=== PATIENT | female | born 1985 | race Caucasian/White ===

== ENCOUNTER 2017-05-30 13:57 | Emergency (ER) | payer BC ==
[~2017-05-30 13:57] MED LIST: PREN0.01 PO
--- NOTE | 2017-05-30 15:34 | PD ---
HPI Chief Complaint Vaginal discharge possible rupture membranes Date Seen: May 30, 2017 Time Seen: 15:30 Travel History International Travel<30 Days: No Contact w/Intl Traveler<30Days: No Known Affected Area: No History of Present Illness HPI 31-year-old who is at 39 weeks and 3 days complains of possible rupture membranes. Patient was voiding and after voiding stood up and noticed a little bit of fluid coming out the job down her legs. It was clear and odorless. Patient's been having uncomplicated and is at 2 prior vaginal deliveries and is group B strep negative Para: 2 : 3 History Past Medical History Medical History: Denies Significant Hx Obstetric History Obstetric History 2 Past Surgical History Narrative Surgical Breast augmentation Family History Family History: Negative Social History Alcohol Use: No Tobacco Use: No Substance Abuse: No Allergies-Medications (Allergen,Severity, Reaction): Coded Allergies: No Known Allergies (Verified , 06/17/08) Home Meds Reported Medications Multivit/Min/Fol Ac/Iron/Pren ( Vit ( Plus)) Tab1 Tab PO DAILY #30 02/21/11 Review of Systems Except as stated in HPI: all other systems reviewed are Neg Physical Exam Narrative GENERAL: Well-nourished, well-developed patient. SKIN: Warm and dry. HEAD: Normocephalic and atraumatic. EYES: No scleral icterus. No injection or drainage. ENT: No nasal drainage noted. Mucous membranes pink. Airway patent. NECK: Supple, trachea midline. No JVD. CARDIOVASCULAR: Regular rate and rhythm without murmurs, gallops, or rubs. RESPIRATORY: Breath sounds equal bilaterally. No accessory muscle use. ABDOMEN/GI: Abdomen soft, non-tender, bowel sounds present, no rebound, no guarding Gravid to [-38] weeks size Fundal Height: [-] GENITOURINARY: External Genitalia: intact and normal in appearance BUS glands: [Normal-] Cervix: [-Mid position] Dilatation: [-3] Effacement: [80-] Station: [-2-] Presentation: [-Vertex] Membranes: [intact ] Uterine Contractions: [Absent) Category: [1-] Baseline: [140-] Reactive: [-Moderate] Variability: [-Moderate] Decels: [Absent-] EXTREMITIES: No cyanosis or edema. BACK: Nontender without obvious deformity. No CVA tenderness. NEUROLOGICAL: Awake and alert. Motor and sensory grossly within normal limits. Five out of 5 muscle strength in all muscle groups. Normal speech. Data Data Vital Signs Reviewed: Yes [facility] Medical Record Reviewed: Yes Plan 31-year-old at 39 weeks 3 days with a negative amnisure Patient is not in labor and cervix is unchanged from her appointment last week Patient is GBS negative Hasn't appointment for follow-up OB exam on Thursday Diagnosis Diagnosis: Primary Impression: 39 weeks gestation of Additional Impression: Intact amniotic membranes during in third trimester Disposition: 01 DISCHARGE HOME Carmella Mcgraw MD May 30, 2017 15:34
== END 2017-05-30 15:56 | disposition home or self-care (01) ==
LOC: HOBED 13:57
DX: Z03.79 Encounter for other suspected maternal and fetal conditions ruled out (principal)
CPT/HCPCS: 84112; 99284

== ENCOUNTER 2017-05-31 19:43 | Inpatient (IN) | payer BC ==
[2017-05-31] VITALS (14 sets, daily range): BP systolic 98–121; BP diastolic 61–72; PULSE 63–77; RESP 18; TEMP 98.2
[~2017-05-31] VITALS: Ht 170.2 cm; Wt 74.8 kg
[2017-05-31] MEDS ORDERED: LACTATED RINGER'S 1000 ML INJ 1,000 ML IV SCH ×2 (20:19)
[2017-05-31] MEDS ORDERED: LACTATED RINGER'S 1000 ML INJ 1,000 ML IV PRN ×2 (20:19)
[2017-05-31] MEDS ORDERED: CITRIC ACID-SODIUM CITRATE LIQ 30 ML UDC PO SCH (20:30)
[2017-05-31] MEDS ORDERED: ONDANSETRON HCL 4 MG/2 ML VIAL IV PRN (20:30)
[2017-05-31] MEDS ORDERED: LIDOCAINE HCL 1% 50 ML VIAL I-DERMAL PRN (20:30)
[2017-05-31] MEDS ORDERED: OXYTOCIN 30 UNITS-500ML PREMIX 500 ML IV SCH (20:30)
[2017-05-31] MEDS ORDERED: OXYTOCIN 30 UNITS-500ML PREMIX 500 ML IV ONE (20:30)
[2017-05-31] MEDS ORDERED: LIDOCAINE HCL 1% 50 ML VIAL INFIL PRN (20:30)
[2017-05-31] MEDS ORDERED: MINERAL OIL 10 ML VIAL TOPICAL PRN (20:30)
[2017-05-31] MEDS ORDERED: SODIUM CHLORID 0.9% 500 ML INJ 500 ML IV PRN ×2 (20:30)
--- NOTE | 2017-05-31 20:36 | PD ---
HPI Chief Complaint Leaking fluid Date Seen: May 31, 2017 Time Seen: 20:20 Travel History International Travel<30 Days: No Contact w/Intl Traveler<30Days: No Known Affected Area: No History of Present Illness HPI 31-year-old 3 para 2 at 40 weeks gestation who began having fluid leakage about 6 PM. She is grossly ruptured and 3 cm dilated. She is having minimal contraction activity. Para: 2 : 3 History Past Medical History Narrative Medical Hypothyroid currently on levothyroxine Obstetric History Obstetric History 2 prior term vaginal deliveries Past Surgical History Narrative Surgical Breast augmentation Family History Family History: Negative Social History Alcohol Use: No Tobacco Use: No Substance Abuse: No Allergies-Medications (Allergen,Severity, Reaction): Coded Allergies: No Known Allergies (Verified , 06/17/08) Home Meds Reported Medications Multivit/Min/Fol Ac/Iron/Pren ( Vit ( Plus)) Tab1 Tab PO DAILY #30 02/21/11 Review of Systems Except as stated in HPI: all other systems reviewed are Neg Physical Exam Narrative GENERAL: Well-nourished, well-developed patient. SKIN: Warm and dry. HEAD: Normocephalic and atraumatic. EYES: No scleral icterus. No injection or drainage. ENT: No nasal drainage noted. Mucous membranes pink. Airway patent. NECK: Supple, trachea midline. No JVD. CARDIOVASCULAR: Regular rate and rhythm without murmurs, gallops, or rubs. RESPIRATORY: Breath sounds equal bilaterally. No accessory muscle use. ABDOMEN/GI: Abdomen soft, non-tender, bowel sounds present, no rebound, no guarding Gravid to [-] weeks size Fundal Height: [-] GENITOURINARY: External Genitalia: intact and normal in appearance BUS glands: [-] Cervix: [-] Dilatation: [3-] Effacement: [-70] Station: [--2] Presentation: [Vertex-] Membranes: [ ruptured] Uterine Contractions: [-Irregular] FHT's: Category: [-1] Baseline: [-] Reactive: [-] Variability: [-] Decels: [-] EXTREMITIES: No cyanosis or edema. BACK: Nontender without obvious deformity. No CVA tenderness. NEUROLOGICAL: Awake and alert. Motor and sensory grossly within normal limits. Five out of 5 muscle strength in all muscle groups. Normal speech. Data Data Vital Signs Reviewed: Yes Orders Ob (2e) Additional Admit Info (05/31/17 20:19) Admit To Inpatient (05/31/17 ) Code Status (05/31/17 20:19) Vital Signs (Adult) .Per protocol (05/31/17 20:19) Heart (05/31/17 20:19) Amnioinfusion (05/31/17 20:19) Urinary Catheter Management .ONCE (05/31/17 20:19) Diet Liquid (06/01/17 Breakfast) Lactated Ringer's 1000 Ml Inj (Lr 1000 M (05/31/17 20:19) Lactated Ringer's 1000 Ml Inj (Lr 1000 M (05/31/17 20:19) Sodium Chlorid 0.9% 500 Ml Inj (Ns 500 M (05/31/17 20:30) Sodium Chlor 0.9% 1000 Ml Inj (Ns 1000 M (05/31/17 20:39) Lidocaine 1% Inj (50 Ml) (Xylocaine 1% I (05/31/17 20:30) Citric Acid-Sodium Citrate Liq (Bicitra (05/31/17 20:30) Ondansetron Inj (Zofran Inj) (05/31/17 20:30) Fentanyl Inj (Fentanyl Inj) (05/31/17 20:30) Fentanyl Inj (Fentanyl Inj) (05/31/17 20:30) Complete Blood Count With Diff (05/31/17 20:19) Hold Clot (05/31/17 20:19) Abo/Rh Blood Type (05/31/17 20:19) Resp Oxygen Non Rebreathe Mask (05/31/17 ) ^ Epidural / Intrathecal Infus (05/31/17 20:19) Oxytocin 30 Units-500ml Premix (Pitocin (05/31/17 20:30) Lidocaine 1% Inj (50 Ml) (Xylocaine 1% I (05/31/17 20:30) Light Mineral Oil (Muri-Lube Oil) (05/31/17 20:30) Inpatient Certification (05/31/17 ) Admit To Inpatient (05/31/17 ) Vital Signs (Adult) .Per protocol (05/31/17 20:19) Heart (05/31/17 20:19) Amnioinfusion (05/31/17 20:19) Urinary Catheter Management .ONCE (05/31/17 20:19) Lactated Ringer's 1000 Ml Inj (Lr 1000 M (05/31/17 20:19) Lactated Ringer's 1000 Ml Inj (Lr 1000 M (05/31/17 20:19) Sodium Chlorid 0.9% 500 Ml Inj (Ns 500 M (05/31/17 20:30) Sodium Chlor 0.9% 1000 Ml Inj (Ns 1000 M (05/31/17 20:39) Inpatient Certification (05/31/17 ) ^ Non Stress Test (05/31/17 20:29) Response To Medication .Post New Med Administration, Reaction (05/31/17 20:29) ^ Discontinue Medication (05/31/17 20:29) Oxytocin 30 Units-500ml Premix (Pitocin (05/31/17 20:30) MDM Medical Record Reviewed: Yes Narrative Course / MDM Assessment: Multipara at 40 weeks gestation with ruptured membranes and minimal uterine activity Plan: Admit for labor management including Pitocin augmentation. Dr. Delarosa was informed of the patient's arrival. Eric Robledo MD May 31, 2017 20:36
[2017-05-31] MEDS ORDERED: SODIUM CHLOR 0.9% 1000 ML INJ 1,000 ML IV PRN ×2 (20:39)
[2017-05-31 20:51] LABS: AUTOMATED NEUTROPHIL # 4.9 TH/MM3 (1.8-7.7); BASOPHIL # 0.1 TH/MM3 (0-0.2); BASOPHIL % 0.9 % (0.0-2.0); EOSINOPHIL # 0.1 TH/MM3 (0-0.4); EOSINOPHIL % 1.9 % (0.0-4.0); HEMO FLAGS DIFF FINAL; LYMPH % 21.9 % (9.0-44.0); LYMPHOCYTE # 1.6 TH/MM3 (1.0-4.8); MEAN CELL VOLUME 86.6 FL (80.0-100.0); MEAN CORPUSCULAR HEMOGLOBIN 28.5 PG (27.0-34.0); MEAN CORPUSCULAR HGB CONC 32.9 % (32.0-36.0); MONO % 7.7 % (0.0-8.0); NEUT % 67.6 % (16.0-70.0); PLATELET COUNT 223 TH/MM3 (150-450); RED BLOOD COUNT 3.58 MIL/MM3 (4.00-5.30); RED CELL DISTRIBUTION WIDTH 14.3 % (11.6-17.2); WHITE BLOOD COUNT 7.2 TH/MM3 (4.0-11.0)
--- NOTE | 2017-05-31 20:52 | HHI.HP ---
History & Physical H&P HPI HPI Chief Complaint Leaking fluid Date Seen: May 31, 2017 Time Seen: 20:20 Travel History International Travel<30 Days: No Contact w/Intl Traveler<30Days: No Known Affected Area: No History of Present Illness HPI 31-year-old 3 para 2 at 40 weeks gestation who began having fluid leakage about 6 PM. She is grossly ruptured and 3 cm dilated. She is having minimal contraction activity. Para: 2 : 3 History (Limited) History Past Medical History Narrative Medical Hypothyroid currently on levothyroxine Obstetric History Obstetric History 2 prior term vaginal deliveries Past Surgical History Narrative Surgical Breast augmentation Family History Family History: Negative Social History Alcohol Use: No Tobacco Use: No Substance Abuse: No Allergies-Medications Allergies-Medications (Allergen,Severity, Reaction): Coded Allergies: No Known Allergies (Verified , 06/17/08) Home Meds Reported Medications Multivit/Min/Fol Ac/Iron/Pren ( Vit ( Plus)) Tab1 Tab PO DAILY #30 02/21/11 ROS Review of Systems Except as stated in HPI: all other systems reviewed are Neg Physical Exam Physical Exam Narrative GENERAL: Well-nourished, well-developed patient. SKIN: Warm and dry. HEAD: Normocephalic and atraumatic. EYES: No scleral icterus. No injection or drainage. ENT: No nasal drainage noted. Mucous membranes pink. Airway patent. NECK: Supple, trachea midline. No JVD. CARDIOVASCULAR: Regular rate and rhythm without murmurs, gallops, or rubs. RESPIRATORY: Breath sounds equal bilaterally. No accessory muscle use. ABDOMEN/GI: Abdomen soft, non-tender, bowel sounds present, no rebound, no guarding Gravid to [-] weeks size Fundal Height: [-] GENITOURINARY: External Genitalia: intact and normal in appearance BUS glands: [-] Cervix: [-] Dilatation: [3-] Effacement: [-70] Station: [--2] Presentation: [Vertex-] Membranes: [ ruptured] Uterine Contractions: [-Irregular] FHT's: Category: [-1] Baseline: [-] Reactive: [-] Variability: [-] Decels: [-] EXTREMITIES: No cyanosis or edema. BACK: Nontender without obvious deformity. No CVA tenderness. NEUROLOGICAL: Awake and alert. Motor and sensory grossly within normal limits. Five out of 5 muscle strength in all muscle groups. Normal speech. Data Data Data Vital Signs Reviewed: Yes Orders Ob (2e) Additional Admit Info (05/31/17 20:19) Admit To Inpatient (05/31/17 ) Code Status (05/31/17 20:19) Vital Signs (Adult) .Per protocol (05/31/17 20:19) Heart (05/31/17 20:19) Amnioinfusion (05/31/17 20:19) Urinary Catheter Management .ONCE (05/31/17 20:19) Diet Liquid (06/01/17 Breakfast) Lactated Ringer's 1000 Ml Inj (Lr 1000 M (05/31/17 20:19) Lactated Ringer's 1000 Ml Inj (Lr 1000 M (05/31/17 20:19) Sodium Chlorid 0.9% 500 Ml Inj (Ns 500 M (05/31/17 20:30) Sodium Chlor 0.9% 1000 Ml Inj (Ns 1000 M (05/31/17 20:39) Lidocaine 1% Inj (50 Ml) (Xylocaine 1% I (05/31/17 20:30) Citric Acid-Sodium Citrate Liq (Bicitra (05/31/17 20:30) Ondansetron Inj (Zofran Inj) (05/31/17 20:30) Fentanyl Inj (Fentanyl Inj) (05/31/17 20:30) Fentanyl Inj (Fentanyl Inj) (05/31/17 20:30) Complete Blood Count With Diff (05/31/17 20:19) Hold Clot (05/31/17 20:19) Abo/Rh Blood Type (05/31/17 20:19) Resp Oxygen Non Rebreathe Mask (05/31/17 ) ^ Epidural / Intrathecal Infus (05/31/17 20:19) Oxytocin 30 Units-500ml Premix (Pitocin (05/31/17 20:30) Lidocaine 1% Inj (50 Ml) (Xylocaine 1% I (05/31/17 20:30) Light Mineral Oil (Muri-Lube Oil) (05/31/17 20:30) Inpatient Certification (05/31/17 ) Admit To Inpatient (05/31/17 ) Vital Signs (Adult) .Per protocol (05/31/17 20:19) Heart (05/31/17 20:19) Amnioinfusion (05/31/17 20:19) Urinary Catheter Management .ONCE (05/31/17 20:19) Lactated Ringer's 1000 Ml Inj (Lr 1000 M (05/31/17 20:19) Lactated Ringer's 1000 Ml Inj (Lr 1000 M (05/31/17 20:19) Sodium Chlorid 0.9% 500 Ml Inj (Ns 500 M (05/31/17 20:30) Sodium Chlor 0.9% 1000 Ml Inj (Ns 1000 M (05/31/17 20:39) Inpatient Certification (05/31/17 ) ^ Non Stress Test (05/31/17 20:29) Response To Medication .Post New Med Administration, Reaction (05/31/17 20:29) ^ Discontinue Medication (05/31/17 20:29) Oxytocin 30 Units-500ml Premix (Pitocin (05/31/17 20:30) MDM MDM Medical Record Reviewed: Yes Narrative Course / MDM Assessment: Multipara at 40 weeks gestation with ruptured membranes and minimal uterine activity Plan: Admit for labor management including Pitocin augmentation. Dr. Delarosa was informed of the patient's arrival. Eric Robledo MD May 31, 2017 20:36 rEic Robledo MD May 31, 2017 20:52
[2017-05-31 21:11] LABS: BLOOD, URINE NEG (NEG); COMMENT (UR) CULT NOT INDICATED; CULTURE IF INDICATED CULT NOT INDICATED; GLUCOSE,URINE NEG (NEG); KETONE, URINE NEG (NEG); MUCUS URINE FEW /lpf (OCC); NITRITE,URINE NEG (NEG); PH, URINE 6.5 (5.0-8.5); SQUAMOUS EPITHELIAL CELL URINE <1 /hpf (0-5); URINE COLOR YELLOW (YELLW/STRAW)
[2017-05-31] MEDS ORDERED: fentaNYL 2MCG-BUPIV 0.125% INJ 100 ML ONE (22:46)
[2017-06-01] VITALS (50 sets, daily range): BP systolic 104–130; BP diastolic 61–82; PULSE 61–91; RESP 16–18; TEMP 97.9–98.7; O2SAT 99–100
--- NOTE | 2017-06-01 03:12 | PD.OB.DELI ---
Anesthesia: Epidural Episiotomy: None Vaginal Delivery: Normal Presentation: Occiput anterior Nuchal Cord: None Delayed cord clamping (45 sec): Yes Infant: Male One Minute : 9 Five Minute : 9 Weight: 8 Placenta: Spontaneous delivery (labial tear right side near clitoris repaired cosmetically) Mague Delarosa MD Jun 01, 2017 03:12
[2017-06-01] MEDS ORDERED: ZOLPIDEM TARTRATE 5 MG TAB PO PRN (03:15)
[2017-06-01] MEDS ORDERED: BENZOCAINE 20% TOPICAL SPRAY 60 ML CAN TOPICAL PRN (03:15)
[2017-06-01] MEDS ORDERED: WITCH HAZEL 50%/GLYCERIN 12.5% 40 PAD JAR TOPICAL PRN (03:15)
[2017-06-01] MEDS ORDERED: ALUMINUM/MAGNESIUM/SIMETH 30 ML CUP PO PRN (03:15)
[2017-06-01] MEDS ORDERED: OXYTOCIN 30 UNITS-500ML PREMIX 500 ML IV SCH (03:15)
[2017-06-01] MEDS ORDERED: DOCUSATE SODIUM 50 MG/SENNA 8.6 MG TAB PO PRN (03:15)
[2017-06-01] MEDS ORDERED: ACETAMINOPHEN 325 MG TAB PO PRN (03:15)
[2017-06-01] MEDS ORDERED: ONDANSETRON ODT 4 MG TAB PO PRN (03:15)
[2017-06-01] MEDS ORDERED: SODIUM CHLORIDE 0.9% FLUSH 10 ML FLUSH IV FLUSH PRN (03:15)
[2017-06-01] MEDS: IBUPROFEN 600 MG TAB PO PRN ×2 (04:26→20:51)
--- NOTE | 2017-06-01 07:45 | HHI.OB ---
Subjective Post Day: 0 Remarks around 3am today, doing well, mild cramping, moderate lochia, Objective Vitals/I&O Vital Signs Date Time Temp Pulse Resp B/P Pulse Ox O2 Delivery O2 Flow Rate FiO2 06/01/17 07:05 16 06/01/17 07:00 68 110/62 06/01/17 06:35 18 06/01/17 06:30 76 122/74 06/01/17 06:02 97.9 18 06/01/17 06:00 64 111/65 06/01/17 05:46 70 113/70 06/01/17 05:35 18 06/01/17 05:30 84 109/68 06/01/17 05:15 70 06/01/17 05:15 104/61 06/01/17 05:05 18 06/01/17 05:01 74 116/66 06/01/17 04:45 67 115/69 06/01/17 04:30 84 120/82 06/01/17 04:15 69 119/79 06/01/17 04:15 98.0 06/01/17 04:11 18 06/01/17 04:00 78 117/79 06/01/17 03:45 75 117/76 06/01/17 03:30 78 130/79 06/01/17 03:16 114/71 06/01/17 03:16 83 06/01/17 03:15 18 06/01/17 03:00 89 06/01/17 03:00 115/82 06/01/17 02:50 74 06/01/17 02:50 100 06/01/17 02:45 18 06/01/17 02:45 116/65 06/01/17 02:40 99 06/01/17 02:40 74 06/01/17 02:30 69 116/73 06/01/17 02:27 98.0 06/01/17 02:26 18 06/01/17 02:25 100 06/01/17 02:25 72 06/01/17 02:15 114/74 06/01/17 02:10 62 06/01/17 02:10 100 06/01/17 02:00 61 113/73 06/01/17 01:55 100 06/01/17 01:55 74 06/01/17 01:45 110/68 06/01/17 01:40 70 06/01/17 01:30 104/69 06/01/17 01:25 64 06/01/17 01:15 109/66 06/01/17 01:10 66 06/01/17 01:00 18 06/01/17 01:00 112/66 06/01/17 00:55 62 06/01/17 00:45 114/69 06/01/17 00:40 65 06/01/17 00:30 18 06/01/17 00:30 113/65 06/01/17 00:25 81 06/01/17 00:15 61 121/76 06/01/17 00:15 98.0 06/01/17 00:10 66 06/01/17 00:00 111/65 05/31/17 23:55 77 05/31/17 23:45 98/69 05/31/17 23:40 77 05/31/17 23:30 63 115/70 05/31/17 23:28 66 05/31/17 23:28 114/72 05/31/17 23:28 63 05/31/17 23:28 114/63 05/31/17 23:27 18 05/31/17 23:15 98.2 18 05/31/17 23:13 72 118/66 05/31/17 23:05 75 108/61 05/31/17 23:03 69 108/66 05/31/17 23:01 63 117/67 05/31/17 22:58 67 121/68 05/31/17 22:17 18 05/31/17 22:16 66 104/64 05/31/17 20:30 18 Objective Remarks GENERAL: Well-nourished, well-developed patient. CARDIOVASCULAR: Regular rate and rhythm without murmurs, gallops, or rubs. RESPIRATORY: Breath sounds equal bilaterally. No accessory muscle use. ABDOMEN/GI: Abdomen soft, non-tender. Fundus: Firm, non-tender at umbilicus. GENITOURINARY: Light to moderate bleeding. EXTREMITIES: No cyanosis or edema, non-tender, without signs of DVT. Medications and IVs Current Medications Medications (Trade) Dose Ordered Sig/Jack Route Start Time Stop Time Status Last Admin (NS Flush) 2 ml BID IV FLUSH 06/01/17 09:00 Sodium Chloride 2 ml 2 ml UNSCH PRN IV FLUSH 06/01/17 03:15 (Pitocin 30 Units-NS 500 ml Premix) 500 ml @ 100 mls/hr CONTINUOUS IV 06/01/17 03:15 06/01/17 08:14 (Tylenol) 650 mg Q4H PRN PO 06/01/17 03:15 (Motrin) 600 mg Q6H PRN PO 06/01/17 03:15 06/01/17 04:26 (Americaine 20% Top Spr) 1 spray Q4H PRN TOPICAL 06/01/17 03:15 (Tucks Pads) 1 applic QID PRN TOPICAL 06/01/17 03:15 (Lillie-Colace) 2 tab Q12H PRN PO 06/01/17 03:15 (Ambien) 5 mg HS PRN PO 06/01/17 03:15 (M-M-R Ii Inj) 0.5 ml ONCE ONCE SQ 06/01/17 16:00 06/01/17 16:01 (Boostrix Inj) 0.5 ml ONCE ONCE IM 06/01/17 16:00 06/01/17 16:01 (Mag-Al Plus Susp Liq) 15 ml Q8H PRN PO 06/01/17 03:15 (Zofran Odt) 4 mg Q6H PRN PO 06/01/17 03:15 Assessment/Plan Problem List: (1) (normal spontaneous vaginal delivery) Assessment and Plan PPD#0 doing well, supportive care, d/w pt due to delivery so close to midnight today may be cleared for discharge tmrw Discharge Planning routine, 06/02 or 06/03 Kerri Gill MD Jun 01, 2017 07:45
[2017-06-01] MEDS ORDERED: SODIUM CHLORIDE 0.9% FLUSH 10 ML FLUSH IV FLUSH SCH (09:00)
[2017-06-01] MEDS ORDERED: DIPHTH/TETANUS/ACEL PERTUSSIS (BOOSTER) 0.5 ML VIAL/PFS IM ONE (16:00)
[2017-06-01] MEDS ORDERED: MEASLES, MUMPS, RUBELLA VACCINE 0.5 ML VIAL SQ ONE (16:00)
[2017-06-02] MEDS ORDERED: IBUP-232 PO (07:53)
--- NOTE | 2017-06-02 07:54 | HHI.DCPOC ---
Discharge Care Plan Report Symptoms to Your Doctor -Temperature above 100.5 degrees -Redness, of incision or excessive or foul smelling drainage -Unusual pain or calf pain -Increased vaginal bleeding -Painful or difficulty urinating -Feelings of extreme sadness or anxiety after 2 weeks Goals to Promote Your Health * To prevent worsening of your condition and complications * To maintain your health at the optimal level Directions to Meet Your Goals Take your medications as prescribed Follow your dietary instruction Follow activity as directed Ensure plenty of rest for recovery Drink fluids for hydration Keep your appointments as scheduled Take your immunizations and boosters as scheduled If your symptoms worsen call your PCP, if no PCP go to Urgent Care Center or Emergency Room Smoking is Dangerous to Your Health. Avoid second hand smoke Call the 24-hour crisis hotline for domestic abuse at Mague Delarosa MD Jun 02, 2017 07:54
[2017-06-02 08:45] VITALS: BP 105/62; PULSE 79; RESP 18; TEMP 98.1
[2017-06-02] MEDS: IBUPROFEN 600 MG TAB PO PRN (10:00)
== END 2017-06-02 15:18 | disposition home or self-care (01) | DRG 775 ==
LOC: HOBED 19:43 → H2EB 20:23 → H1EA 06-01 07:32
PROVIDERS: ADMIT Obstetrics & Gynecology; ATTEND Obstetrics & Gynecology
PROC: 00HU33Z Insertion of Infusion Device into Spinal Canal, Percutaneous Approach (ICD-10-PCS; 2017-05-31)
PROC: 3E0R3CZ (ICD-10-PCS; 2017-05-31)
PROC: 10E0XZZ Delivery of Products of Conception, External Approach (ICD-10-PCS; principal; 2017-06-01)
PROC: 0UQJXZZ Repair Clitoris, External Approach (ICD-10-PCS; 2017-06-01)
DX: O99.284 Endocrine, nutritional and metabolic diseases complicating childbirth (principal); E03.9 Hypothyroidism, unspecified; O70.0 First degree perineal laceration during delivery; Z37.0 Single live birth; Z3A.40 40 weeks gestation of pregnancy
CPT/HCPCS: 81001; 84112; 85025; J2590; J7120

== ENCOUNTER → 2017-07-28 | Day surgery (SDC) | payer BC ==
--- NOTE | 2017-07-20 14:53 | TH ---
cc: PAULINO DOMINGUEZ M.D. DATE: 07/28/2017 DATE OF 1985 PREOPERATIVE DIAGNOSIS Persistent bleeding after vaginal delivery. HISTORY OF PRESENT CONDITION The patient is a 32-year-old white female 3, para 3, 7 weeks past her third vaginal delivery. She still had persistent bleeding of significant since the delivery, up to 1 pad an hour with mild cramping. Her hemoglobin on June 25 was 12.1 but her ferritin is low at 15. Her TSH is 0.1 and she is on Synthroid 112 mics but her oceanic sciences professor feels that that is in the normal range. She has not had any weakness or dizziness but she is quite concerned with the persistence of the bleeding and wants evaluation. Ultrasound in the office today revealed an endometrial stripe of 9 mm which is considered reasonable given her status. Her cervical os is closed. There is no cervical motion tenderness or abnormal discharge. Uterus does feel somewhat boggy and perhaps ___ although ultrasonography reveals normal dimensions. She is therefore scheduled for hysteroscopy, D&C. She has no chronic or systemic illnesses other than her hypothyroidism. She is currently breast-feeding and still taking vitamins. ALLERGIES She has no allergies. SOCIAL HISTORY She does not smoke, drink or use illicit drugs. PAST SURGICAL HISTORY She has had no prior surgeries. PHYSICAL EXAMINATION Her weight is 144. Her height is 5/7. VITAL SIGNS: Her blood pressure is 110/70. NECK: She has no thyroid enlargement. LUNGS: Her lungs are clear to auscultation. HEART: Her heart is regular without murmur, heaves or thrills. BREASTS: Without dominant mass. ABDOMEN: Abdomen is benign. DIRECTED EXAMINATION: Perineum is estrogenized. Vault is elevated. Cervix is multiparous and there is some dark blood but the os is closed. There is no cervical motion tenderness. The uterus appears to be in position. Clinically feels boggy and slightly enlarged. EXTREMITIES: Unremarkable. IMPRESSION Persistent post bleeding that is not in a hemorrhage or acute quantity requiring immediate intervention but persisting over several weeks. She desires hysteroscopic evaluation and D&C to see if we can get this under control. The risks, benefits, expectations have been discussions and she is scheduled for next week. Paulino Dominguez MD PPC/EO /2:28 PM /2:48 PM
[~2017-07-28] MED LIST changes: +IBUP-232 PO; +LACTATED RINGER'S 1000 ML INJ 1,000 ML ONE; +MIDAZOLAM HCL 2 MG/2 ML VIAL ONE; +ONDANSETRON HCL 4 MG/2 ML VIAL IV PUSH ONE; +PROPOFOL 200 MG/20 ML AMP IV ONE; +ceFAZolin INJ 1,000 MG VIAL ONE
--- NOTE | 2017-07-28 12:48 | MP ---
cc: PAULINO DOMINGUEZ DATE OF SURGERY 07/28/2017 DATE OF 1985 PREOPERATIVE DIAGNOSIS bleeding POSTOPERATIVE DIAGNOSIS bleeding PROCEDURE Hysteroscopy, D&C ANESTHESIA General endotracheal SURGEON Paulino Dominguez MD SPECIMENS Endometrial curetting BLOOD LOSS Minimal FINDINGS Examination under anesthesia revealed a uterus that appears to be appropriately involuted , normal nongravid size. The intrauterine cavity did not have any obvious polyps, fibroids, or retained products. Both tubal ostia were seen. There was no septum. No other evidence of anatomic anomalies. A D&C was lightly done to remove some superficial endometrium, but there was no other pathology to identify and remove. ESTIMATED BLOOD LOSS Minimal COUNTS The sponge, instrument and needle counts were correct and the procedure was tolerated well. PROCEDURE The patient was identified as Josef Rodriguez. Her permit was reviewed with her in holding. She was taken to the operating room, placed under general endotracheal anesthesia, prepped and draped in the dorsolithotomy position. A time-out was performed with all in attending. She had received one gram of Ancef. Her bladder was entered with a red rubber catheter and the MyoSure hysteroscopy system was placed into the intrauterine cavity after dilation with dilators. The evaluation of the cavity was reassuring, systematic and complete. At this point, a small banjo curette was used in a clockwise fashion for the entirety of the intrauterine cavity with a scant amount of tissue obtained. There was no significant bleeding. No evidence of infection and no evidence of pathology. She tolerated the procedure well and went to the recovery room in stable condition. Paulino Dominguez MD PPC/ANDREAL /12:32 PM /12:37 PM
== END | disposition home or self-care (01) ==
LOC: ESDC 10:35
PROVIDERS: ATTEND Obstetrics & Gynecology
DX: O72.2 Delayed and secondary postpartum hemorrhage (principal)
CPT/HCPCS: 00952; 58558; 88305; J0690; J2250; J2405; J3010; J7120